=== PATIENT | male | born 1990 | race American Indian/Alaskan Native ===

== ENCOUNTER 2019-10-05 10:32 | Emergency (ER) | payer SELFPAY ==
[2019-10-05] MEDS ORDERED: IBUPROFEN 800 MG TAB PO ONE (12:36)
[2019-10-05] MEDS ORDERED: dexAMETHasone 20 MG/5 ML VIAL IV ONE (12:36)
[2019-10-05] MEDS ORDERED: BUTALB/ACETAMINOPHEN/CAFFEINE TAB PO ONE (12:36)
--- NOTE | 2019-10-05 12:52 | Emergency Department Report ---
ED General Adult HPI - General Chief complaint: Upper Respiratory Infection Stated complaint: HEADACHE,BODY ACHE Time Seen by Provider: 10/05/19 11:47 Source: patient Mode of arrival: Ambulatory Limitations: No Limitations - History of Present Illness Initial comments: 28-year-old -Turkish male presents with complaints of sudden onset of body aches, headache, chills, and mild cough last night. He denies any nausea/vomiting/diarrhea, vision changes, dizziness, or numbness/tingling/weakness. Patient states he took Tylenol and Advil and his headache improved from a 10/10 in severity to 8/10 in severity. Patient denies cough being productive and denies any shortness of breath or chest pain. Patient reports tactile fever -: Sudden - Related Data Previous Rx's Medication Instructions Recorded Last Taken Type Butalb/Acetamin/Caff 50-325-40 1 tab PO Q8HR PRN #6 tablet 10/05/19 Unknown Rx [Fioricet 50-325-40] Ibuprofen [Motrin 800 MG tab] 800 mg PO Q8HR PRN #21 tablet 10/05/19 Unknown Rx Oseltamivir [Tamiflu] 75 mg PO BID 5 Days #10 cap 10/05/19 Unknown Rx Allergies Allergy/AdvReac Type Severity Reaction Status Date / Time No Known Allergies Allergy Unverified 05/30/16 17:08 ED Review of Systems ROS: Stated complaint: HEADACHE,BODY ACHE Other details as noted in HPI Comment: All other systems reviewed and negative Constitutional: chills, fever, malaise Eyes: denies: vision change Respiratory: cough. denies: shortness of breath Cardiovascular: denies: chest pain, palpitations, edema, syncope Gastrointestinal: denies: abdominal pain, nausea, vomiting, diarrhea, constipation Neurological: headache. denies: weakness, numbness, paresthesias, confusion, abnormal gait Psychiatric: denies: anxiety, depression ED Past Medical Hx - Past Medical History Previous Medical History?: No - Surgical History Past Surgical History?: No - Social History Smoking Status: Current Every Day Smoker Substance Use Type: Alcohol - Medications Home Medications: Home Medications Medication Instructions Recorded Confirmed Last Taken Type Butalb/Acetamin/Caff 50-325-40 1 tab PO Q8HR PRN #6 tablet 10/05/19 Unknown Rx [Fioricet 50-325-40] Ibuprofen [Motrin 800 MG tab] 800 mg PO Q8HR PRN #21 tablet 10/05/19 Unknown Rx Oseltamivir [Tamiflu] 75 mg PO BID 5 Days #10 cap 10/05/19 Unknown Rx ED Physical Exam - General Limitations: No Limitations General appearance: alert, in no apparent distress - Head Head exam: Present: atraumatic, normocephalic - Eye Eye exam: Present: normal appearance, PERRL, EOMI. Absent: scleral icterus - Neck Neck exam: Present: normal inspection, full ROM. Absent: tenderness, lymphadenopathy - Respiratory Respiratory exam: Present: normal lung sounds bilaterally. Absent: respiratory distress, wheezes, rales, rhonchi, stridor, chest wall tenderness, accessory muscle use - Cardiovascular Cardiovascular Exam: Present: regular rate, normal rhythm. Absent: systolic murmur, diastolic murmur, rubs, gallop - GI/Abdominal GI/Abdominal exam: Present: soft. Absent: distended - Extremities Exam Extremities exam: Present: normal inspection, full ROM - Back Exam Back exam: Present: normal inspection - Neurological Exam Neurological exam: Present: alert, oriented X3, CN II-XII intact, normal gait. Absent: motor sensory deficit - Expanded Neurological Exam Expanded Cerebellar function: Finger to Nose: Normal, Heel to Diaz: Normal, Romberg: Normal Sensory exam: Upper Extremity Light Touch: Normal, Lower Extremity Light Touch: Normal Motor strength exam: RUE: 5, LUE: 5, RLE: 5, LLE: 5 - Psychiatric Psychiatric exam: Present: normal affect, normal mood - Skin Skin exam: Present: warm, dry, intact, normal color. Absent: rash ED Course Vital Signs 10/05/19 10/05/19 10:36 14:03 Temperature 98.6 F 98.2 F Pulse Rate 66 62 Respiratory 18 18 Rate Blood Pressure 134/77 Blood Pressure 128/62 [Left] O2 Sat by Pulse 99 99 Oximetry ED Medical Decision Making - Medical Decision Making 28-year-old -Turkish male presents with complaints of sudden onset of body aches, headache, chills, and mild cough last night. Patient states his headache is bothering him mostly. He states history of migraines. Patient given Fioricet, ibuprofen, and Decadron. He states his headache is now a 1/10 in severity down from 88/10 in severity. Neuro exam is normal. Vitals are normal. Patient's symptoms and presentation are consistent with influenza/viral syndrome. Patient is stable for discharge home and follow-up with PCP in 3-5 days. Strict return precautions in detail with patient who verbalizes understanding. Critical care attestation.: If time is entered above; I have spent that time in minutes in the direct care of this critically ill patient, excluding procedure time. ED Disposition Clinical Impression: Influenza, Tension headache Disposition: TO HOME OR SELFCARE Is pt being admited?: No Condition: Stable Instructions: Tension Headache (ED), Influenza (ED) Prescriptions: Butalb/Acetamin/Caff 50-325-40 [Fioricet 50-325-40] 1 tab PO Q8HR PRN #6 tablet PRN Reason: Headache Ibuprofen [Motrin 800 MG tab] 800 mg PO Q8HR PRN #21 tablet PRN Reason: fever/pain Oseltamivir [Tamiflu] 75 mg PO BID 5 Days #10 cap Referrals: PRIMARY CARE,MD [Primary Care Provider] - 3-5 Days
[2019-10-05 14:04] VITALS: BP 128/62
== END 2019-10-05 14:02 | disposition home or self-care (01) ==
LOC: ED 10:32
DX: J11.1 Influenza due to unidentified influenza virus with other respiratory manifestations (principal); G44.209 Tension-type headache, unspecified, not intractable; F17.200 Nicotine dependence, unspecified, uncomplicated; F10.10 Alcohol abuse, uncomplicated; Z79.899 Other long term (current) drug therapy
CPT/HCPCS: 96374; 99283; J1100

== ENCOUNTER 2022-06-21 20:23 | Emergency (ER) | payer SELFPAY ==
[2022-06-21 21:40] VITALS: BP 126/78
== END 2022-06-21 22:33 | disposition left against medical advice (07) ==
LOC: ED 20:23
DX: Z53.21 Procedure and treatment not carried out due to patient leaving prior to being seen by health care provider